=== PATIENT | male | born 1960 ===

== ENCOUNTER 2025-11-20 06:54 | Day surgery (SDC) | payer OTHER ==
[2025-11-20] MEDS ORDERED: MIDAZOLAM HCL 2 MG/2 ML VIAL IV ONE (08:30)
[2025-11-20] MEDS ORDERED: fentaNYL CITRATE 50 MCG/ML AMPUL IV PUSH ONE (08:30)
[2025-11-20] MEDS ORDERED: DIPHENHYDRAMINE HCL 50 MG/ML VIAL 1ML IV ONE (08:30)
== END 2025-11-20 10:00 | disposition home or self-care (01) ==
LOC: AMB-ENDOS 06:54
PROVIDERS: ATTEND Colon & Rectal Surgery
DX: D12.3 Benign neoplasm of transverse colon (principal); K57.30 Diverticulosis of large intestine without perforation or abscess without bleeding; K63.5 Polyp of colon